=== PATIENT | female | born 1965 | race African-American/Black ===

== ENCOUNTER 2016-10-22 10:55 | Emergency (ER) | payer BC | END 2016-10-22 11:38 | disposition home or self-care (01) | LOC: BURERS 10:55 | DX: K02.9 Dental caries, unspecified (principal); R43.2 Parageusia; F32.9 Major depressive disorder, single episode, unspecified; Z85.3 Personal history of malignant neoplasm of breast; Z98.890 Other specified postprocedural states; Z79.899 Other long term (current) drug therapy | CPT/HCPCS: 99282 ==

== ENCOUNTER 2017-02-11 09:08 | Outpatient (CLI) | payer BC ==
--- NOTE | 2017-02-11 13:43 | RAD ---
RIGHT KNEE 4 VIEWS: DATE: 02/11/17. FINDINGS: No fracture, dislocation, or acute bony change was seen. The joint space and articular surfaces lori ear normal. IMPRESSION: No acute findings. POS: HOME
== END 2017-02-11 09:09 | disposition home or self-care (01) ==
LOC: BURRAD 09:08
PROVIDERS: ATTEND Family Medicine
DX: M25.561 Pain in right knee (principal)

== ENCOUNTER 2017-02-21 13:21 | Emergency (ER) | payer BC, OTHER ==
[2017-02-21] MEDS ORDERED: Ibuprofen 800 MG TAB ONE (13:44)
[2017-02-21 14:15] LABS: Eosinophils 1 % (0-10); Hemoglobin 12.8 g/dL (12.0-16.0); Lymphocytes 25 % (21-51); MDiff Complete? YES; Mean Corpuscular HGB CONC 31.6 g/dL (32.0-36.0); Mean Corpuscular Hemoglobin 27.5 pg (27.0-31.0); Mean Platelet Volume 9.3 fL (7.4-10.4); Monocytes 4 % (0-10); Neutrophil 68 % (42-75); Platelet Count 229 thou/uL (130-400); RBC Distribution Width 12.3 % (11.5-14.5); Reactive Lymphocytes 1 % (0-10); Red Blood Cell (RBC) Count 4.66 mill/uL (4.20-5.40)
[2017-02-21 14:16] LABS: ALT (SGPT) 27 U/L (8-55); AST (SGOT) 24 U/L (5-34); Alkaline Phosphatase 85 U/L (40-150); Anion Gap 17 mmol/L (10-20); BUN (Urea Nitrogen) 11 mg/dL (9.8-20.1); Bilirubin, Total 0.7 mg/dL (0.2-1.2); Calc. Creatinine Clearance 0 mL/min (70-130); Calcium 9.6 mg/dL (7.8-10.44); Carbon Dioxide 23 mmol/L (22-29); Chloride 107 mmol/L (98-107); Estimated GFR-MDRD 85; Globulin 3.4 g/dL (2.4-3.5); Glucose 107 mg/dL (70-105); Potassium 3.7 mmol/L (3.5-5.1); Protein, Total 7.4 g/dL (6.0-8.3); Sodium 143 mmol/L (136-145)
[2017-02-21 14:18] LABS: CKMB 0.5 ng/mL (0-6.6); Troponin I Less than 0.010 ng/mL (< 0.028)
--- NOTE | 2017-02-21 18:35 | RAD ---
CHEST TWO VIEWS: Date: 02-21-17 Comparison: None. FINDINGS: The heart is normal in size. Calcification is seen in the aortic arch. There is no widening or shift of the mediastinum. The lungs are fully inflated and clear. There is no sign of infiltrate, effusion, or pneumothorax. No gross fractures were identified. The only area where there might be a little foc al pleural thickening along the left lateral chest wall around ribs 6 or 7. The finding is equivocal at best. The visible vertebra appeared intact. IMPRESSION: Arteriosclerosis but no definite acute thoracic findings. POS: HOME
== END 2017-02-21 14:30 | disposition home or self-care (01) ==
LOC: BURERS 13:21
DX: R07.89 Other chest pain (principal); E11.9 Type 2 diabetes mellitus without complications; F32.9 Major depressive disorder, single episode, unspecified; Z85.3 Personal history of malignant neoplasm of breast; Z79.899 Other long term (current) drug therapy; V89.2XXA Person injured in unspecified motor-vehicle accident, traffic, initial encounter
CPT/HCPCS: 71020; 80053; 82553; 84484; 85025

== ENCOUNTER 2017-04-11 17:23 | Emergency (ER) | payer BC, MEDICAID, SELFPAY ==
[2017-04-11] MEDS ORDERED: Ketorolac Tromethamine 30 MG/ML VIAL ONE (18:14)
[2017-04-11] MEDS ORDERED: Ondansetron HCl/PF 4 MG/2 ML Vial ONE (18:14)
[2017-04-11 18:32] LABS: #Basophils 0.1 thou/uL (0.0-0.2); #Eosinphils 0.1 thou/uL (0.0-0.7); #Lymphocytes 1.3 thou/uL (1.20-3.40); #Monocytes 0.8 thou/uL (0.11-0.59); %Basophils 1.4 % (0.0-1.0); %Eosinophils 0.6 % (0.0-10.0); %Lymphocytes 14.2 % (21.0-51.0); %Monocytes 8.1 % (0.0-10.0); %Neutrophils 75.6 % (42.0-75.0); Hemoglobin 12.9 g/dL (12.0-16.0); Mean Corpuscular HGB CONC 31.8 g/dL (32.0-36.0); Mean Corpuscular Volume 84.8 fl (81.0-99.0); Mean Platelet Volume 8.5 fL (7.4-10.4); Platelet Count 246 thou/uL (130-400); RBC Distribution Width 12.7 % (11.5-14.5); Red Blood Cell (RBC) Count 4.78 mill/uL (4.20-5.40); White Blood Cell (WBC) Count 9.3 thou/uL (4.8-10.8)
[2017-04-11 18:48] LABS: ALT (SGPT) 17 U/L (8-55); AST (SGOT) 17 U/L (5-34); Albumin 4.1 g/dL (3.5-5.0); Alkaline Phosphatase 88 U/L (40-150); Anion Gap 17 mmol/L (10-20); BUN (Urea Nitrogen) 11 mg/dL (9.8-20.1); Bilirubin, Total 0.9 mg/dL (0.2-1.2); Calc. Creatinine Clearance 0 mL/min (70-130); Calcium 9.4 mg/dL (7.8-10.44); Carbon Dioxide 25 mmol/L (22-29); Chloride 107 mmol/L (98-107); Estimated GFR-MDRD Greater than 90; Globulin 3.4 g/dL (2.4-3.5); Glucose 112 mg/dL (70-105); Lipase 11 U/L (8-78); Potassium 3.6 mmol/L (3.5-5.1); Protein, Total 7.5 g/dL (6.0-8.3); Sodium 145 mmol/L (136-145)
[2017-04-11 19:05] LABS: CK (CPK) 163 U/L (29-168)
== END 2017-04-11 19:05 | disposition home or self-care (01) ==
LOC: BURERS 17:23
DX: J11.1 Influenza due to unidentified influenza virus with other respiratory manifestations (principal); E11.9 Type 2 diabetes mellitus without complications; F32.9 Major depressive disorder, single episode, unspecified; Z85.3 Personal history of malignant neoplasm of breast
CPT/HCPCS: 80053; 82550; 83605; 83690; 85025; 96361; 96374; 96375; J1885; J2405

== ENCOUNTER 2017-05-15 21:00 | Emergency (ER) | payer OTHER ==
[2017-05-15 21:30] LABS: Bilirubin Negative (Negative); Blood, Urine Large (Negative); Clarity Slightly Cloudy (Clear); Glucose, Urine (Dipstick) Negative (Negative); Leukocyte Negative (Negative); Nitrite Negative (Negative); Protein, Urine (Dipstick) 30 mg/dL (Neg-Trace); Specific Gravity, Urine 1.015 (1.005-1.030); Urobilinogen 0.2 mg/dL (0.2-1.0)
[2017-05-15 21:35] LABS: Bacteria/HPF Rare-Few HPF (None Seen); RBC/HPF GREATER THAN 50-TNTC HPF (0-3); Squamous Epithelial None Seen HPF (0-3); WBC/HPF 0-3 HPF (0-3)
[2017-05-15] MEDS ORDERED: Ketorolac Tromethamine 60 MG/2 ML VIAL ONE (21:50)
[2017-05-17 21:56] LABS: Chlamydia by PCR Not Detected (NotDetected); GC by PCR Not Detected (NotDetected)
== END 2017-05-15 22:00 | disposition home or self-care (01) ==
LOC: BURERS 21:00
DX: N94.6 Dysmenorrhea, unspecified (principal); E11.9 Type 2 diabetes mellitus without complications; F32.9 Major depressive disorder, single episode, unspecified; Z79.899 Other long term (current) drug therapy
CPT/HCPCS: 81003; 81015; 87491; 87591; 96372; J1885

== ENCOUNTER 2018-04-17 09:29 | Emergency (ER) | payer OTHER | END 2018-04-17 10:25 | disposition home or self-care (01) | LOC: BURERS 09:29 | DX: J06.9 Acute upper respiratory infection, unspecified (principal); E11.9 Type 2 diabetes mellitus without complications; F32.9 Major depressive disorder, single episode, unspecified | CPT/HCPCS: 87804; 99283 ==

== ENCOUNTER 2018-04-20 08:54 | Outpatient (CLI) | payer OTHER ==
--- NOTE | 2018-04-20 22:48 | CT ---
CT OF THE LEFT LOWER EXTREMITY WITH CONTRAST 04/20/[address] of the left lower extremity was performed for evaluation of swelling of unknown etiology. T he scan covers an area from the mid pelvis through the lower leg after giving IV contrast. The lower pelvis showed no sign of mass or enlarged nodes to be causing compression by any vascular structures. A small amount of free fluid is seen in the cul-de-sac which was not of an amount to be of concern. No gross adnexal abnormalities were seen, though ultrasound would be more sensitive at examining this . The area around the femoral triangle was unremarkable. While this scan is not optimal for visualizing venous clots, there were no defects in the major veins to suggest an issue. No masses or other signs obstruction were seen elsewhere in the lower extremity. A trace of fluid is seen in the knee joint, not enough to be concerned about. The bony structure showed no fracture or area of destruction. IMPRESSION: Unremarkable scan of the left lower extremity. No causes for swelling were appreciated at this time. POS: HOME
== END 2018-04-20 08:55 | disposition home or self-care (01) ==
LOC: BURCT 08:54
PROVIDERS: ATTEND Family Medicine
DX: M79.605 Pain in left leg (principal)

== ENCOUNTER 2018-07-12 10:06 | Outpatient (CLI) | payer OTHER ==
--- NOTE | 2018-07-12 18:55 | ULT ---
LEFT LOWER EXTREMITY VENOUS ULTRASOUND: 07/12/18 Color duplex doppler ultrasonography of the left lower extremity was performed for evaluation of swel ling. No echogenic clot was seen. There was normal compression of all deep veins from groin to ankle. There was normal response to augmentation maneuvers. IMPRESSION: No evidence of DVT. POS: HOME
== END 2018-07-12 10:07 | disposition home or self-care (01) ==
LOC: BURULT 10:06
PROVIDERS: ATTEND Family Medicine
DX: M79.89 Other specified soft tissue disorders (principal)

== ENCOUNTER 2019-01-08 14:48 | Emergency (ER) | payer OTHER | END 2019-01-08 15:22 | disposition home or self-care (01) | LOC: BURERS 14:48 | DX: J30.9 Allergic rhinitis, unspecified (principal); E11.9 Type 2 diabetes mellitus without complications; Z79.899 Other long term (current) drug therapy; Z79.84 Long term (current) use of oral hypoglycemic drugs | CPT/HCPCS: 99283 ==

== ENCOUNTER 2020-03-29 10:59 | Emergency (ER) | payer OTHER ==
--- NOTE | 2020-03-29 12:33 | RAD ---
Chest AP view INDICATION: Cough COMPARISON: Prior exam dated February 21, 2017 FINDINGS: Lungs: The lungs are clear Cardiac silhouette: The cardiomediastinal silhouette appears within normal limits. Pulmonary vasculature: Normal Pleural spaces: No pleural effusion or pneumothorax is demonstrated. Upper abdomen: No abnormality seen. Osseous structures: No acute osseous abnormality. Additional findings: None. IMPRESSION: No acute cardiopulmonary abnormality.
[2020-03-29 23:59] LABS: SARS-CoV-2 MS2 Positive; SARS-CoV-2 N Gene Positive; SARS-CoV-2 S Gene Positive; SARS-CoV-2 by NAA DETECTED (NotDetected); SARS-CoV-2 orf1ab Positive
== END 2020-03-29 13:20 | disposition home or self-care (01) ==
LOC: BURERS 10:59
DX: U07.1 COVID-19 (principal); J06.9 Acute upper respiratory infection, unspecified; E11.9 Type 2 diabetes mellitus without complications; I10 Essential (primary) hypertension; E03.9 Hypothyroidism, unspecified; Z79.84 Long term (current) use of oral hypoglycemic drugs; Z79.899 Other long term (current) drug therapy
CPT/HCPCS: 71045; 87635; 87804; U0003

== ENCOUNTER 2021-10-10 19:34 | Emergency (ER) | payer OTHER ==
[2021-10-10] MEDS ORDERED: Ketorolac Tromethamine 30 MG/ML VIAL ONE (19:56)
[2021-10-10] MEDS ORDERED: diphenhydrAMINE 50 MG/ML VIAL ONE (20:04)
[2021-10-10] MEDS ORDERED: Metoclopramide HCl 10 MG/2 ML VIAL ONE (20:04)
[2021-10-10 20:14] LABS: ALT (SGPT) 11 U/L (8-55); AST (SGOT) 10 U/L (5-34); Albumin 4.3 g/dL (3.5-5.0); Alkaline Phosphatase 118 U/L (40-110); Anion Gap 18 mmol/L (10-20); BUN (Urea Nitrogen) 12 mg/dL (9.8-20.1); Bilirubin, Total 2.1 mg/dL (0.2-1.2); Calc. Creatinine Clearance 0 mL/min (70-130); Calcium 9.5 mg/dL (7.8-10.44); Carbon Dioxide 23 mmol/L (22-29); Chloride 106 mmol/L (98-107); Estimated GFR 89; Globulin 3.3 g/dL (2.4-3.5); Glucose 111 mg/dL (70-105); Lipase 15 U/L (8-78); Potassium 3.6 mmol/L (3.5-5.1); Protein, Total 7.6 g/dL (6.0-8.3); Sodium 143 mmol/L (136-145)
[2021-10-10 20:29] LABS: #Basophils 0.1 thou/uL (0.0-0.2); #Eosinphils 0.1 thou/uL (0.0-0.7); #Monocytes 0.6 thou/uL (0.11-0.59); #Neutrophils 8.2 thou/uL (1.40-6.50); %Basophils 0.9 % (0.0-1.0); %Eosinophils 0.6 % (0.0-10.0); %Monocytes 6.2 % (0.0-10.0); %Neutrophils 82.2 % (42.0-75.0); Hemoglobin 13.4 g/dL (12.0-16.0); Mean Corpuscular HGB CONC 33.5 g/dL (32.0-36.0); Mean Corpuscular Hemoglobin 27.6 pg (27.0-31.0); Mean Corpuscular Volume 82.2 fL (78.0-98.0); Mean Platelet Volume 9.6 fL (7.4-10.4); Platelet Count 281 thou/uL (130-400); RBC Distribution Width 13.1 % (11.5-14.5); Red Blood Cell (RBC) Count 4.84 mill/uL (4.20-5.40)
[2021-10-10 21:37] LABS: Bilirubin Negative (Negative); Blood, Urine Negative (Negative); Clarity Clear (Clear); Glucose, Urine (Dipstick) Negative (Negative); Ketone, Urine Negative (Negative); Leukocyte Negative (Negative); Nitrite Negative (Negative); Protein, Urine (Dipstick) Negative (Neg-Trace); Urobilinogen 0.2 mg/dL (Less than 2); pH, Urine 6.5 (5.0-9.0)
== END 2021-10-10 22:05 | disposition home or self-care (01) ==
LOC: BURERS 19:34
DX: A08.4 Viral intestinal infection, unspecified (principal); E11.9 Type 2 diabetes mellitus without complications; E03.9 Hypothyroidism, unspecified; E78.5 Hyperlipidemia, unspecified; E78.00 Pure hypercholesterolemia, unspecified; I10 Essential (primary) hypertension; Z20.822 Contact with and (suspected) exposure to COVID-19; Z79.899 Other long term (current) drug therapy; Z79.84 Long term (current) use of oral hypoglycemic drugs
CPT/HCPCS: 80053; 81003; 83690; 85025; 87804; 96374; 96375; J1200; J1885; J2765; U0003; U0005

== ENCOUNTER 2022-01-21 23:02 | Emergency (ER) | payer OTHER ==
[2022-01-21] MEDS ORDERED: Iopamidol 370 76% 100 ML VIAL FS ONE (23:03)
[2022-01-21] MEDS ORDERED: Dicyclomine 20 MG TAB ONE (23:51)
[2022-01-21] MEDS ORDERED: Ondansetron ODT 4 MG TAB ONE (23:51)
[2022-01-21] MEDS ORDERED: Acetaminophen 500 MG TAB ONE (23:51)
[2022-01-22 00:59] LABS: #Basophils 0.1 thou/uL (0.0-0.2); #Eosinphils 0.1 thou/uL (0.0-0.7); #Monocytes 0.5 thou/uL (0.11-0.59); #Neutrophils 7.5 thou/uL (1.40-6.50); %Eosinophils 0.7 % (0.0-10.0); %Lymphocytes 10.7 % (21.0-51.0); %Monocytes 5.1 % (0.0-10.0); %Neutrophils 82.5 % (42.0-75.0); Hemoglobin 12.6 g/dL (12.0-16.0); Mean Corpuscular HGB CONC 31.8 g/dL (32.0-36.0); Mean Corpuscular Hemoglobin 27.2 pg (27.0-31.0); Mean Corpuscular Volume 85.8 fL (78.0-98.0); Mean Platelet Volume 9.5 fL (7.4-10.4); Platelet Count 283 thou/uL (130-400); RBC Distribution Width 12.9 % (11.5-14.5); Red Blood Cell (RBC) Count 4.62 mill/uL (4.20-5.40); White Blood Cell (WBC) Count 9.1 thou/uL (4.8-10.8)
[2022-01-22 01:14] LABS: ALT (SGPT) 16 U/L (8-55); AST (SGOT) 13 U/L (5-34); Albumin 4.1 g/dL (3.5-5.0); Alkaline Phosphatase 106 U/L (40-110); Anion Gap 16 mmol/L (10-20); BUN (Urea Nitrogen) 12 mg/dL (9.8-20.1); Calc. Creatinine Clearance 0 mL/min (70-130); Calcium 9.1 mg/dL (7.8-10.44); Carbon Dioxide 23 mmol/L (22-29); Chloride 106 mmol/L (98-107); Estimated GFR 96; Glucose 139 mg/dL (70-105); Lipase 11 U/L (8-78); Potassium 3.6 mmol/L (3.5-5.1); Protein, Total 7.1 g/dL (6.0-8.3); Sodium 141 mmol/L (136-145)
== END 2022-01-22 02:15 | disposition home or self-care (01) ==
LOC: BURERS 23:02
DX: A08.4 Viral intestinal infection, unspecified (principal); I10 Essential (primary) hypertension; E11.9 Type 2 diabetes mellitus without complications; E03.9 Hypothyroidism, unspecified; E78.00 Pure hypercholesterolemia, unspecified; Z85.3 Personal history of malignant neoplasm of breast; Z79.84 Long term (current) use of oral hypoglycemic drugs; Z79.899 Other long term (current) drug therapy
CPT/HCPCS: 36416; 74177; 80053; 83605; 83690; 84484; 85025; 93005; 96374; Q0162; Q9967

== ENCOUNTER 2022-02-02 10:47 | Outpatient (CLI) | payer OTHER | END 2022-02-02 10:48 | disposition home or self-care (01) | LOC: BURRAD 10:47 | PROVIDERS: ATTEND Family Medicine | DX: M25.562 Pain in left knee (principal); M17.12 Unilateral primary osteoarthritis, left knee ==

== ENCOUNTER 2022-04-26 17:17 | Emergency (ER) | payer OTHER ==
[2022-04-26] MEDS ORDERED: Dexamethasone 4 MG TAB ONE (18:00)
== END 2022-04-26 18:05 | disposition home or self-care (01) ==
LOC: BURERS 17:17
DX: M54.42 Lumbago with sciatica, left side (principal); I10 Essential (primary) hypertension; E11.9 Type 2 diabetes mellitus without complications; E03.9 Hypothyroidism, unspecified; E78.00 Pure hypercholesterolemia, unspecified; Z85.3 Personal history of malignant neoplasm of breast; Z79.84 Long term (current) use of oral hypoglycemic drugs; Z79.899 Other long term (current) drug therapy
CPT/HCPCS: 99283; J8540

== ENCOUNTER 2023-04-08 15:35 | Emergency (ER) | payer OTHER ==
[2023-04-08] MEDS ORDERED: Ketorolac Tromethamine 30 MG (1 mL) VIAL ONE (17:03)
== END 2023-04-08 17:11 | disposition home or self-care (01) ==
LOC: BURERS 15:35
DX: K02.9 Dental caries, unspecified (principal)
CPT/HCPCS: 96372; 99282; J1885